=== PATIENT | female | born 1980 | race Caucasian/White ===

== ENCOUNTER 2017-01-08 10:21 | Emergency (ER) | payer OTHER ==
[~2017-01-08] VITALS: Ht 157.5 cm; Wt 79.8 kg
[2017-01-08 10:24] VITALS: BP 141/89
--- NOTE | 2017-01-08 10:30 | NUR ---
Patient ambulated to bed 07.
--- NOTE | 2017-01-08 10:32 | NUR ---
36/F BIB SELF C/O NAUSEA, EPIGASTRIC PAIN RADIATING TO L CHEST X 2 DAYS. SKIN IS PINK/WARM/DRY; AAOX4 WITH EVEN AND STEADY GAIT; LUNGS CLEAR BL; HR EVEN AND REGULAR; PATIENT STATES PAIN OF 8/10 AT THIS TIME; VSS; PATIENT POSITIONED FOR COMFORT; HOB ELEVATED; BEDRAILS UP X2; BED DOWN. ER MD MADE AWARE OF PT STATUS.
[2017-01-08] MEDS ORDERED: ALUMINUM HYD/MAG/SIMETHICONE 30 ML, DICYCLOMINE HCL LIQUID 20 MG, LIDOCAINE VISCOUS 2% ... PO ONE ×3 (10:40)
[2017-01-08] MEDS ORDERED: ONDANSETRON 4 MG ODT PO ONE (10:50)
--- NOTE | 2017-01-08 10:52 | NUR ---
Patient to XRAY via wheelchair per tech.
--- NOTE | 2017-01-08 10:56 | NUR ---
Patient back from XRAY via wheelchair per tech.
--- NOTE | 2017-01-08 11:05 | NUR ---
US at bedside.
[2017-01-08 11:11] LABS: BASOPHILS # (AUTO) 0.1 K/uL (0.00-0.22); EOSINOPHILS # (AUTO) 0.1 K/uL (0-0.4); EOSINOPHILS % (AUTO) 1.7 % (0.0-4.0); HEMATOCRIT 33.2 % (36-48); HEMOGLOBIN 10.4 g/dL (12.0-16.0); LYMPHOCYTES # (AUTO) 2.1 K/uL (2.5-16.5); LYMPHOCYTES % (AUTO) 33.8 % (20.5-51.1); MEAN CORPUSCULAR HEMOGLOBIN 23 pg (27-31); MEAN CORPUSCULAR HGB CONC 32 g/dL (33-37); MEAN CORPUSCULAR VOLUME 74 fL (80-94); MONOCYTES # (AUTO) 0.3 K/uL (0.8-1.0); MONOCYTES % (AUTO) 4.6 % (1.7-9.3); NEUTROPHILS # (AUTO) 3.5 K/uL (1.8-7.7); NEUTROPHILS % (AUTO) 58.9 % (42.2-75.2); PLATELET COUNT (AUTO) 231 K/uL (140-450); RED BLOOD CELL COUNT(AUTO) 4.48 MIL/uL (4.20-5.40); RED CELL DISTRIBUTION WIDTH 16.7 % (11.6-13.7); WHITE BLOOD COUNT (AUTO) 6.1 K/uL (4.8-10.8)
[2017-01-08 11:29] LABS: ANION GAP 11.2 (8-16); CARBON DIOXIDE 27.2 mmol/L (21-32); CREATININE 0.6 mg/dL (0.6-1.3); POTASSIUM 3.4 mmol/L (3.5-5.1)
[2017-01-08 11:35] LABS: ALBUMIN 3.5 g/dL (3.4-5.0); TOTAL BILIRUBIN 0.3 mg/dL (0.0-1.0); TOTAL PROTEIN, SERUM 7.1 g/dL (6.4-8.2)
--- NOTE | 2017-01-08 12:09 | NUR ---
Patient discharged with v/s stable. Written and verbal after care instructions given and explained. Patient alert, oriented and verbalized understanding of instructions. Ambulatory with steady gait. All questions addressed prior to discharge. ID band removed. Patient advised to follow up with PMD. Rx of RAYMOND TUCKER given. Patient educated on indication of medication including possible reaction and side effects. Opportunity to ask questions provided and answered.
[2017-01-08 12:10] VITALS: BP 132/88
--- NOTE | 2017-01-09 11:54 | NUR ---
ADDENDUM: LEFT MESSAGE TO PATIENT TO RETURN TO ER FOR REPEAT CXR OR CALL ER
== END 2017-01-08 12:09 | disposition home or self-care (01) ==
LOC: MED 10:21
DX: K80.20 Calculus of gallbladder without cholecystitis without obstruction (principal); K76.0 Fatty (change of) liver, not elsewhere classified; K21.9 Gastro-esophageal reflux disease without esophagitis; Z88.5 Allergy status to narcotic agent
CPT/HCPCS: 36415; 71020; 76705; 80053; 81002; 81025; 83690; 85025; 93005; 99285; S0119

== ENCOUNTER 2017-01-10 07:29 | Emergency (ER) | payer OTHER ==
[~2017-01-10] VITALS: Ht 154.9 cm; Wt 79.4 kg
[2017-01-10 07:34] VITALS: BP 125/84
--- NOTE | 2017-01-10 07:44 | NUR ---
Patient ambulated to bed 04.
--- NOTE | 2017-01-10 07:48 | NUR ---
VERO PT TAKEN OFF THE UNIT FOR XRAY VIA WHEEL CHAIR BY SAULO ZENG
--- NOTE | 2017-01-10 08:06 | NUR ---
Dr. Blancas evalauting patient at bedside.
--- NOTE | 2017-01-10 08:10 | NUR ---
36/F TO ED FOR REPEAT CHEST XRAY. PT WAS TOLD TO RETURN TO ED FOR ABNORMAL CHEST XRAY FINDINGS. NO MEDICAL COMPLAINTS. LUNGS CLEAR BILAT. HR EVEN AND REGULAR. AAOX4. VSS. DENIES PAIN. NO SIGNS OF DISTRESS.
[2017-01-10 08:45] VITALS: BP 125/84
--- NOTE | 2017-01-10 08:45 | NUR ---
Patient discharged with v/s stable. Written and verbal after care instructions given and explained. Patient verbalized understanding. Ambulatory with steady gait. All questions addressed prior to discharge. Advised to follow up with PMD.
== END 2017-01-10 08:45 | disposition home or self-care (01) ==
LOC: MED 07:31
DX: R91.8 Other nonspecific abnormal finding of lung field (principal); K21.9 Gastro-esophageal reflux disease without esophagitis; Z88.6 Allergy status to analgesic agent

== ENCOUNTER 2017-09-11 22:31 | Emergency (ER) | payer OTHER ==
[~2017-09-11] VITALS: Ht 154.9 cm; Wt 81.6 kg
[2017-09-11 22:38] VITALS: BP 130/89
--- NOTE | 2017-09-11 22:43 | NUR ---
TO LOBBY, A/W EULALIA YANEZ, KYM ERMD NOTED
--- NOTE | 2017-09-11 22:54 | NUR ---
PT TAKEN TO BED 2
--- NOTE | 2017-09-11 23:08 | NUR ---
36Y/F PT.PRESENTS TO ED WITH C/O VAGINAL BLEEDING X2 DAYS. PT. , UNABLE TO REMEMBER GA. HX. GESTATIONAL DM. AAO X4, AMBULATORY WITH STEDAY GAIT. ABOEMDN SOFT, NON TENDER, C/O PAIN 01/06. VSS, ER MD MADE AWARE OF TP. STATUS.
--- NOTE | 2017-09-11 23:20 | NUR ---
Patient being evaluated by at bedside.
[2017-09-11 23:47] LABS: BASOPHILS # (AUTO) 0.1 K/uL (0.00-0.22); BASOPHILS % (AUTO) 1.5 % (0.0-2.0); EOSINOPHILS # (AUTO) 0.1 K/uL (0-0.4); LYMPHOCYTES % (AUTO) 35.9 % (20.5-51.1); MONOCYTES # (AUTO) 0.5 K/uL (0.8-1.0)
[2017-09-11 23:48] LABS: APPEARANCE,URINE HAZY (CLEAR); BILIRUBIN,URINE NEGATIVE (NEGATIVE); BLOOD, URINE 3+ (NEGATIVE); COLOR,URINE YELLOW (YELLOW); LEUKOCYTE ESTERASE ,URINE 1+ (NEGATIVE); NITRITE, URINE NEGATIVE (NEGATIVE); PH,URINE 6.5 (5.0-9.0); UGLUCOSE NEGATIVE (NEGATIVE)
[2017-09-11 23:50] LABS: EOSINOPHILS % (AUTO) 0.8 % (0.0-4.0); HEMATOCRIT 34.3 % (36-48); LYMPHOCYTES # (AUTO) 2.5 K/uL (2.5-16.5); MEAN CORPUSCULAR HEMOGLOBIN 24 pg (27-31); MEAN CORPUSCULAR HGB CONC 32 g/dL (33-37); MEAN CORPUSCULAR VOLUME 74 fL (80-94); MONOCYTES % (AUTO) 7.2 % (1.7-9.3); NEUTROPHILS # (AUTO) 3.8 K/uL (1.8-7.7); NEUTROPHILS % (AUTO) 54.6 % (42.2-75.2); PLATELET COUNT (AUTO) 245 K/uL (140-450); RED BLOOD CELL COUNT(AUTO) 4.64 MIL/uL (4.20-5.40); RED CELL DISTRIBUTION WIDTH 20.3 % (11.6-13.7)
[2017-09-12 00:04] LABS: RBC,URINE 50-80 /HPF (0-5)
[2017-09-12 00:14] LABS: POTASSIUM 3.8 mmol/L (3.5-5.1)
[2017-09-12 00:25] LABS: ALBUMIN 3.1 g/dL (3.4-5.0); ANION GAP 15.4 (8-16); CARBON DIOXIDE 26.4 mmol/L (21-32); CREATININE 0.8 mg/dL (0.6-1.3); TOTAL BILIRUBIN 0.1 mg/dL (0.0-1.0)
--- NOTE | 2017-09-12 01:45 | NUR ---
Patient discharged with v/s stable. Written and verbal after care instructions given and explained. Patient alert, oriented and verbalized understanding of instructions. Ambulatory with steady gait. All questions addressed prior to discharge. ID band removed. Patient advised to follow up with PMD. Rx of MACROBID CAPSULE given. Patient educated on indication of medication including possible reaction and side effects. Opportunity to ask questions provided and answered.
[2017-09-12 01:55] VITALS: BP 125/75
== END 2017-09-12 01:45 | disposition home or self-care (01) ==
LOC: MED 22:31
DX: O20.9 Hemorrhage in early pregnancy, unspecified (principal); O23.41 Unspecified infection of urinary tract in pregnancy, first trimester; Z3A.01 Less than 8 weeks gestation of pregnancy; K21.9 Gastro-esophageal reflux disease without esophagitis; Z88.5 Allergy status to narcotic agent
CPT/HCPCS: 36415; 76801; 80053; 81001; 81025; 84702; 85025; 86900; 86901; 87086; 99285; Q0092